=== PATIENT | male | born 1960 | race Hispanic/Latino ===

== ENCOUNTER 2020-01-28 08:14 | Inpatient (IN) | payer BC, OTHER ==
[2020-01-23 09:12] LABS: BASOPHILS % 0.1 % (0.0-1.0); EOSINOPHILS # (AUTO) 0.4 (0.0-0.4); EOSINOPHILS % 2.9 % (0.0-6.0); HEMATOCRIT 42.9 % (38.2-49.6); HEMOGLOBIN 14.3 g/dL (14.0-18.0); LYMPHOCYTES # (AUTO) 1.4 (1.0-3.2); LYMPHOCYTES % 9.8 % (18.0-39.1); MEAN CORPUSCULAR HEMOGLOBIN 29.7 pg (28-32); MEAN CORPUSCULAR HGB CONC 33.3 g/dL (31-35); MEAN CORPUSCULAR VOLUME 89.2 fL (81-99); MONOCYTES # (AUTO) 0.8 (0.2-0.8); MONOCYTES % 5.4 % (4.4-11.3); NEUTROPHILS % 81.1 % (38.7-80.0); PLATELET COUNT 378 x10e3/uL (140-360); RED BLOOD COUNT 4.81 x10e6/uL (4.3-5.7); RED CELL DISTRIBUTION WIDTH 13.4 % (11.7-14.4)
[~2020-01-28] VITALS: Ht 160 cm; Wt 93.0 kg
[~2020-01-28 08:14] MED LIST: ACETYLCYSTEINE 200 MG/ML 4ML VIAL ONE; ADVAIR HFA 115-12 GM INH; ALBUTEROL0.63 MG/3 INH; ALLEGRA ALLERG180 MG PO; ANORO ELLIPTA1 EACH INH; AZELASTINE137 MCG/0. INH; FARXIGA PO; GLIPIZIDE5 MG PO; JANUMET 50-1,01 EACH PO; LIDOCAINE HCL 4% 50 ML BTL ONE; LIDOCAINE HCL-PF 4% 40 MG/1 ML 5ML AMP ONE; LOSARTAN POTAS100 MG PO; MONTELUKAST SOD10 MG PO; NEXIUM40 MG PO; OXYMETAZOLINE HCL 0.05% NAS 1 SPRAY BTL ONE; SIMVASTATIN40 MG PO
--- OUTSIDE RECORDS SUMMARY | 2020-01-28 10:48 | XMS REPORT | Continuity of Care Document ---
Author Author [facility] Organization [facility] Address [address] [place] [address] Phone Unavailable Care Team Providers Care Pool Installer Name Role Phone Unavailable Unavailable Problems This patient has no known problems. Allergies, Adverse Reactions, Alerts This patient has no known allergies or adverse reactions. Medications This patient has no known medications. Procedures This patient has no known procedures. Encounters Start Date/Time End Date/Time Encounter Type Admission Type [facility] Care Department Encounter ID Source 2019-09-30 06:33:00 2019-09-30 06:33:00 Emergency E [id number] Results This patient has no known results.
[2020-01-28] MEDS ORDERED: DEXTROSE 50% SYRINGE 50 ML IV PRN (11:00)
[2020-01-28] MEDS ORDERED: ZOLPIDEM TARTRATE 5 MG TAB PO PRN (11:00)
[2020-01-28] MEDS ORDERED: HYDROCODONE/CHLORPHENIRAMINE 5 ML LIQCR PO PRN (11:00)
[2020-01-28 11:29] VITALS: BP 136/90
[2020-01-28 11:33] VITALS: BP 136/90
[2020-01-28 11:37] VITALS: BP 136/90
[2020-01-28] MEDS: CEFTRIAXONE SOD 1 GM/NS 50 ML 50 ML IV SCH (11:45)
[2020-01-28] MEDS: METHYLPREDNISOLONE SOD SUCC 125 MG/2ML VIAL IV SCH ×2 (11:45→21:10)
[2020-01-28] MEDS: PANTOPRAZOLE 40 MG 10ML VIAL IV SCH (11:45)
[2020-01-28] MEDS: INSULIN REGULAR, HUMAN 100 UNIT/1 ML 3ML VIAL SQ SCH ×3 (11:45→21:20)
--- NOTE | 2020-01-28 11:48 | History and Physical ---
CHIEF COMPLAINT: Persistent cough and dyspnea. HISTORY OF PRESENT ILLNESS: The patient is a 59-year-old man. He has a history of persistent cough and congestion for a month. He notes some improvement with albuterol. He is also noted some acid reflux and postnasal drainage. Despite these treatments as an outpatient, his symptoms have continued to worsen. He had a CT scan of the chest done as an outpatient in August that showed bilateral peripheral infiltrates. He was scheduled for a bronchoscopy today with transbronchial biopsy, but was having wheezing and difficulty breathing. He also reported his breathing being worse over the past week. He had some leukocytosis despite denying any fevers at home. His outpatient bronchoscopy was canceled and he was admitted for intravenous antibiotics and Solu-Medrol. PAST MEDICAL HISTORY: 1. Gastroesophageal reflux. 2. Hypertension. 3. Hyperlipidemia. PAST SURGICAL HISTORY: Status post cataract surgery. FAMILY HISTORY: Noncontributory. SOCIAL HISTORY: The patient quit smoking many years ago. He is not an active drinker. He does have some dogs at home, but no birds. He has not had any recent travel. He has no recent exposure to COVID. His COVID test was negative. REVIEW OF SYSTEMS: The patient is not having fever or headache. He does note some nasal drainage. He is having cough and congestion. He has some wheezing and some improvement with bronchodilators. He does not have any chest pain. He has no nausea or vomiting. He is not having any leg edema. PHYSICAL EXAMINATION: VITAL SIGNS: The patient is afebrile. The vital signs are stable. HEENT: Shows no facial swelling or erythema. LYMPHATIC: Shows no submandibular, cervical, or supraclavicular adenopathy. CARDIAC: Reveals regular rate and rhythm with normal S1 and S2. LUNGS: Auscultation of lungs reveals rhonchi and crackles at the bases. There is no wheezing. ABDOMEN: Soft and nontender. There is no nausea or vomiting. EXTREMITIES: There is no leg edema. NEUROLOGIC: Shows no focal abnormalities. IMPRESSION: 1. Bilateral pulmonary infiltrates and worsening dyspnea, present on admission. 2. Chronic cough with discolored phlegm, present on admission. 3. Rhinosinusitis. 4. Gastroesophageal reflux. 5. Diabetes, requiring oral medications as an outpatient. 6. Hypertension, requiring treatment with oral medications. PLAN: 1. The patient will have a CT scan of the chest to check for any worsening of his infiltrates. 2. Panculture the patient and begin antibiotics. 3. Solu-Medrol 60 mg IV q.12. 4. Bronchodilators. 5. Infectious Disease consultation. 6. Echocardiogram. MD HENRY Reardon/LYUBOV /[id number]
[2020-01-28] MEDS ORDERED: SODIUM CHLORIDE 0.9% 250ML 250 ML ONE (11:51)
[2020-01-28] MEDS: AZITHROMYCIN 500MG/NS 250 ML 250 ML IV SCH (11:53)
[2020-01-28 12:04] VITALS: BP 136/90
[2020-01-28 12:26] LABS: BASOPHILS % 0.2 % (0.0-1.0); EOSINOPHILS # (AUTO) 0.2 (0.0-0.4); EOSINOPHILS % 1.2 % (0.0-6.0); HEMATOCRIT 41.4 % (38.2-49.6); HEMOGLOBIN 13.8 g/dL (14.0-18.0); LYMPHOCYTES # (AUTO) 1.3 (1.0-3.2); MEAN CORPUSCULAR HEMOGLOBIN 29.9 pg (28-32); MEAN CORPUSCULAR HGB CONC 33.3 g/dL (31-35); MEAN CORPUSCULAR VOLUME 89.6 fL (81-99); MONOCYTES # (AUTO) 0.9 (0.2-0.8); MONOCYTES % 4.7 % (4.4-11.3); NEUTROPHILS # (AUTO) 15.5 (2.1-6.9); NEUTROPHILS % 86.4 % (38.7-80.0); PLATELET COUNT 360 x10e3/uL (140-360); RED BLOOD COUNT 4.62 x10e6/uL (4.3-5.7); RED CELL DISTRIBUTION WIDTH 13.2 % (11.7-14.4)
[2020-01-28 12:53] LABS: ALANINE AMINOTRANSFERASE 16 IU/L (0-55); ALBUMIN 3.4 g/dL (3.5-5.0); ALBUMIN/GLOBULIN RATIO 1.1 (0.8-2.0); ALKALINE PHOSPHATASE 85 IU/L (40-150); ANION GAP 14.9 mmol/L (8-16); BLOOD UREA NITROGEN 9 mg/dL (7-26); BUN/CREATININE RATIO 11 (6-25); CALCIUM 8.4 mg/dL (8.4-10.2); CARBON DIOXIDE 24 mmol/L (22-29); CHLORIDE 104 mmol/L (98-107); CREATININE, SERUM 0.79 mg/dL (0.72-1.25); EST GLOMERULAR FILTRATION RATE > 60 ML/MIN (60-); GLUCOSE 139 mg/dL (74-118); POTASSIUM 3.9 mmol/L (3.5-5.1); SODIUM 139 mmol/L (136-145)
[2020-01-28] MEDS: ALBUTEROL SULF 0.083% NEB SOLN 3 ML NEB NEB SCH ×2 (13:05→20:00)
--- NOTE | 2020-01-28 13:14 | Diagnostic Imaging Report ---
EXAM: CT Chest WITHOUT intravenous contrast 01/28/2020 12:15 PM INDICATION: ^pulmonary infiltrates ^[id number] ^1215 COMPARISON: None TECHNIQUE: Chest was scanned utilizing a multidetector helical scanner from the lung apex through the level of the adrenal glands without administration of IV contrast. Coronal and sagittal reformations were obtained. Routine protocol was performed. IV CONTRAST: None RADIATION DOSE: Total DLP: 484 mGy*cm. Dose modulation, iterative reconstruction, and/or weight based adjustment of the mA/kV was utilized to reduce the radiation dose to as low as reasonably achievable. COMPLICATIONS: None FINDINGS: LINES/ TUBES: None. LUNGS AND AIRWAYS: There multifocal peripheral groundglass opacities throughout the dependent portions of the right upper lobe, lingula and left lower lobe. No consolidative opacity is noted. No suspicious pulmonary nodule or mass. PLEURA: The pleural spaces are clear. HEART AND MEDIASTINUM: The thyroid gland is normal. No mediastinal, hilar or axillary lymphadenopathy. The heart is normal in size. There is no pericardial effusion. Coronary artery calcifications are noted. Small hiatal hernia is noted. UPPER ABDOMEN: Unremarkable. BONES: No acute osseous abnormality. No suspicious lytic or blastic lesion. SOFT TISSUES: Unremarkable. IMPRESSION: Bilateral peripheral predominant groundglass opacities are concerning for multifocal infection, likely atypical including possibly viral or fungal. Recommend follow-up after treatment. Signed by: Luc Muñoz MD on 01/28/2020 1:11 PM
--- NOTE | 2020-01-28 15:33 | NUR ---
INFECTIOUS DISEASE CONSULT NOTE DR. MARITZA SEE CC: SOB, fever HPI: 59 year old male with a perisistent cough and congestion for approximately a month that has improved with albuterol. The patient was followed by an MD outpatient who ordered a CT chest. It indicated bilateral infiltrates. He was scheduled for a bronch, but was having wheezing and difficulty breathing. He was also having fevers. He was admitted for IV ABT. Denies travel or contact with animals other than dogs. PMH: GERD, HTN, HLD ROS: + SOB, +weakness ALL 14 POINT ROS NEG UNLESS OTHERWISE NOTED PHYSICAL EXAM: VS: per chart GENERAL: awake, alert, oriented HEENT: normocephalic, atraumatic CV: s1. s2. no s3. s4. CHEST: diminished, wheezing bll ABD: soft, non tender, no distension EXT: moves all, no joint swelling SKIN: intact, no rash LABS: reviewed RADIOLOGY: reviewed IMPRESSION: Bilateral peripheral predominant groundglass opacities are concerning for multifocal infection, likely atypical including possibly viral or fungal. Recommend follow-up after treatment. IMPRESSION: Bilateral infiltrates likely atypical Pneumonia Leukocytosis PLAN: continue on steroids per pulmonary Get COVID IGG Get mycoplasma, legionella, and chlamydia, HIV Recommend Lung biopsy r/o BOOP continue azithromycin and rocephin Thank you for the consult! Angi Ly MSN, CLOTHING MAN, AGACNP-BC discussed with Maritza See M.D.
[2020-01-28 16:00] VITALS: BP 157/92
--- NOTE | 2020-01-28 17:01 | NUR ---
infectious disease consult PI: 59 year old male with a persistent cough and congestion for approximately since june getting slowl worse a ct was done in October was supposed to get bronch ,patient didnot do ,now for a month that has improved with albuterol. The patient was followed by an MD outpatient who ordered a CT chest. It indicated bilateral infiltrates. He was scheduled for a bronch, but was having wheezing and difficulty breathing. He was also having fevers. He was admitted for IV ABT. Denies travel or contact with animals other than dogs. PMH: GERD, HTN, HLD ROS: + SOB, +weakness ALL 14 POINT ROS NEG UNLESS OTHERWISE NOTED PHYSICAL EXAM: VS: per chart GENERAL: awake, alert, oriented HEENT: normocephalic, atraumatic CV: s1. s2. no s3. s4. CHEST: diminished, wheezing bll ABD: soft, non tender, no distension EXT: moves all, no joint swelling SKIN: intact, no rash LABS: reviewed RADIOLOGY: reviewed IMPRESSION: Bilateral peripheral predominant groundglass opacities are concerning for multifocal infection, likely atypical including possibly viral or fungal. Recommend follow-up after treatment. IMPRESSION: Bilateral infiltrates likely atypical Pneumonia Leukocytosis PLAN: continue on steroids per pulmonary Get COVID IGG Get mycoplasma, legionella, and chlamydia, HIV Recommend Lung biopsy r/o BOOP continue azithromycin and rocephin discussed with medical team
[2020-01-28 17:15] LABS: HIV 1&2 AB SCREEN NON-REACTIVE (NONREACTIVE)
[2020-01-28 20:00] VITALS: BP 116/92
[2020-01-29] VITALS (7 sets, daily range): BP systolic 120–148; BP diastolic 81–101
[2020-01-29] MEDS: ALBUTEROL SULF 0.083% NEB SOLN 3 ML NEB NEB SCH ×4 (02:55→20:05)
[2020-01-29] MEDS: INSULIN REGULAR, HUMAN 100 UNIT/1 ML 3ML VIAL SQ SCH ×4 (08:15→22:27)
[2020-01-29] MEDS: PANTOPRAZOLE 40 MG 10ML VIAL IV SCH (08:18)
[2020-01-29] MEDS: LOSARTAN POTASSIUM 100 MG TAB PO SCH (08:19)
[2020-01-29] MEDS: MONTELUKAST SODIUM 10 MG TAB PO SCH (08:19)
[2020-01-29] MEDS: METHYLPREDNISOLONE SOD SUCC 125 MG/2ML VIAL IV SCH ×2 (08:19→22:25)
--- NOTE | 2020-01-29 09:44 | Progress Note ---
DATE: Pulmonary Critical Care Progress Note SUBJECTIVE: The patient is feeling slightly better after receiving steroids and antibiotics. More detailed history reveals that he was a light smoker about 5 to 10 cigarettes a day intermittently in the past. 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 He once again denies any prior history of asthma or bronchitis. His coughing symptoms have been worsening over the past couple of months. He has not lost any weight. In fact, he gained 6 pounds. He denies any fevers. PHYSICAL EXAMINATION: VITAL SIGNS: Blood pressure is 121/99, saturation is 99% on room air. The pulse is 102. HEENT: Shows no facial swelling or erythema. LYMPHATIC: Shows no submandibular, cervical, or supraclavicular adenopathy. CARDIAC: Reveals regular rate and rhythm with normal S1 and S2. LUNGS: Auscultation of lungs reveals crackles at the bases. There is no wheezing. ABDOMEN: Soft and nontender. There is no rebound or guarding. NEUROLOGIC: Shows possibly some weakness in the right hand. LABORATORY DATA: BUN to creatinine ratio is 9 to 0.79. Other electrolytes are within normal limits. White blood cell count is 17.9 with a hemoglobin of 13.8. Platelet count of 360. IMPRESSION: 1. Interstitial pneumonitis of unclear etiology. The differential includes fungal infection, other indolent infections, toxic exposures and cardiovascular disease. 2. Gastroesophageal reflux. 3. Diabetes requiring oral medications as an outpatient. 4. Hypertension. 5. Rhinosinusitis. PLAN: 1. Continue current antibiotics and Solu-Medrol. 2. Case discussed with Thoracic Surgery and Infectious Disease. Case also discussed with the patient and we will proceed with a video-assisted thoracoscopy for definite diagnosis. 3. Continue oxygen. 4. Continue bronchodilators. MD HENRY Reardon/LYUBOV /[id number]
--- NOTE | 2020-01-29 10:00 | Consultation ---
DATE OF CONSULTATION: 01/29/2020 REASON FOR CONSULT: Respiratory insufficiency; requested by Dr. Francia Pino. HISTORY: This is a 59-year-old man with a history of cough and congestion for the last several months. 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 He has also noted some acid reflux and postnasal drip. He has been seen as an outpatient by Dr. Pino. Dyspnea has been progressing as well as wheezing. He was admitted yesterday for possible bronchoscopy. CT scan has shown diffuse infiltrates and minimal effusion. Consideration for biopsy is underway. The patient smoked until last March. He is a whm-zumlcfd-mhgxzaytm diabetic. There is no history of coronary artery disease. A COVID test was reportedly negative. He has had an elevated white blood cell count of approximately at 14,000. He had an echocardiogram showing EF of 65% without any evidence of pericardial effusion. Left ventricular end-diastolic dimension was 5.8 cm. PAST MEDICAL HISTORY: Positive for hyperlipidemia, hypertension, and gastroesophageal reflux. MEDICATIONS: Janumet, simvastatin, losartan, glipizide, and Chaya. PAST SURGICAL HISTORY: Positive for cataract removal. ALLERGIES: NONE KNOWN. FAMILY HISTORY: The patient does not know what his mother and father of. SOCIAL HISTORY: Positive for social alcohol. Quit smoking last March. REVIEW OF SYSTEMS: GENERAL: Positive for fatigue and malaise. NEUROLOGIC: Positive for an episode of weakness in the left hand last week. This is described as paresthesias which resolved after 10 minutes. CARDIAC: Negative for chest pain or palpitation. PULMONARY: Positive for shortness of breath and wheezing as above. GI: No constipation or diarrhea. : Negative hematuria or dysuria. ENDOCRINE: Negative for polyuria or polydipsia. VASCULAR: Negative for claudication. SKIN: Negative for rashes or itching. HEMATOLOGIC: Negative for clotting or bleeding. INFECTIOUS: Positive for white count and malaise. He has not had a fever. PSYCHIATRIC: Negative for depression or anxiety. PHYSICAL EXAMINATION: GENERAL: A stocky man, sitting up in bed, who has some audible wheezing. VITAL SIGNS: Blood pressure 140/70, pulse 80 and regular, respirations 16 and unlabored. NECK: Supple, nontender. No JVD. CARDIAC: Regular rate and rhythm. There is normal S1, S2. There is no S3 or S4. LUNGS: Scattered rhonchi and crackles bilaterally. No areas of dullness. ABDOMEN: Globoid: Benign. Good bowel sounds. No hepatosplenomegaly. BACK: No CVA tenderness. No muscular spasm. EXTREMITIES: No cyanosis, clubbing, or edema. VASCULAR: Carotids 2+/2+ bilaterally. I could not hear any carotid bruits. Radials and femorals are 2+/2+ bilaterally. I could not palpate any pulses distal to either femoral artery in either lower extremities. SKIN: No rashes or nonhealing ulcers. MUSCULOSKELETAL: Full range of motion at all joints. No joint swelling. NEUROLOGIC: Cranial nerves II through XII intact. Sensation intact to light touch and pinprick bilaterally. LABORATORIES AND IMAGING: CT scan is reviewed and is as above. White blood cell count 17.9, hemoglobin 13.8, hematocrit 41.4, and platelet count 360,000. Sodium 139, potassium 3.9, BUN 9, and creatinine 0.79. IMPRESSION: Pulmonary infiltrates of unclear etiology. Thoracoscopic or open lung biopsy might be a beneficial procedure if other physicians agree. I described thoracoscopic and open surgery to the patient. I told him that the risks of either surgery would include , bleeding, infection, heart attack, stroke, pneumonia, prolonged ICU stay, mechanical ventilation, tracheostomy, etc. The patient stated they understood, no further questions and wanted to proceed if the procedure was recommended. Thank you very much for asking me to see this nice man. MD DEEPA Rice/LYUBOV /[id number]
[2020-01-29 11:07] LABS: BASOPHILS % 0.2 % (0.0-1.0); HEMATOCRIT 41.7 % (38.2-49.6); HEMOGLOBIN 14.5 g/dL (14.0-18.0); LYMPHOCYTES # (AUTO) 0.8 (1.0-3.2); LYMPHOCYTES % 3.3 % (18.0-39.1); MEAN CORPUSCULAR HEMOGLOBIN 30.9 pg (28-32); MEAN CORPUSCULAR HGB CONC 34.8 g/dL (31-35); MEAN CORPUSCULAR VOLUME 88.9 fL (81-99); MONOCYTES # (AUTO) 0.7 (0.2-0.8); MONOCYTES % 2.7 % (4.4-11.3); NEUTROPHILS # (AUTO) 22.7 (2.1-6.9); NEUTROPHILS % 92.9 % (38.7-80.0); PLATELET COUNT 375 x10e3/uL (140-360); RED BLOOD COUNT 4.69 x10e6/uL (4.3-5.7); RED CELL DISTRIBUTION WIDTH 13.2 % (11.7-14.4)
[2020-01-29] MEDS: CEFTRIAXONE SOD 1 GM/NS 50 ML 50 ML IV SCH ×2 (11:15→15:18)
[2020-01-29 11:29] LABS: ANION GAP 14.9 mmol/L (8-16); BLOOD UREA NITROGEN 16 mg/dL (7-26); BUN/CREATININE RATIO 18 (6-25); CALCIUM 8.7 mg/dL (8.4-10.2); CARBON DIOXIDE 23 mmol/L (22-29); CHLORIDE 104 mmol/L (98-107); CREATININE, SERUM 0.89 mg/dL (0.72-1.25); EST GLOMERULAR FILTRATION RATE > 60 ML/MIN (60-); GLUCOSE 255 mg/dL (74-118); POTASSIUM 3.9 mmol/L (3.5-5.1); SODIUM 138 mmol/L (136-145)
[2020-01-29] MEDS: AZITHROMYCIN 500MG/NS 250 ML 250 ML IV SCH ×2 (12:00→15:18)
--- NOTE | 2020-01-29 14:00 | NUR ---
PRE/POST BS PFT DONE. RESULTS PLACED IN DR. SCHAEFER'S BOX TO BE READ . Addendum: 01/29/20 at 1435 by Nancy Nieves RT Amended: Links added.
[2020-01-29 15:37] LABS: ABG HCO3 24 mmol/L (22-26); ABG PCO2 36 mmHg (35-45); ABG PH 7.42 (7.35-7.45); ABG PO2 62 mmHg (80-105); ABG TCO2 25
[2020-01-29] MEDS: AZELASTINE HCL 137 MCG NASAL SPRAY NS SCH (16:53)
--- NOTE | 2020-01-29 18:03 | Diagnostic Imaging Report ---
History: Weakness Comparison studies: None Technique: Axial images were obtained from the skull base to the vertex. Coronal and sagittal reconstructions obtained from the axial data. Dose modulation, iterative reconstruction, and/or weight based adjustment of the mA/kV was utilized to reduce the radiation dose to as low as reasonably achievable. Intravenous contrast: None Findings: Scalp/skull: No abnormalities. No fractures, blastic or lytic lesions. Extra-axial spaces: No masses. No fluid collections. Brain sulci: Appropriate for age. Ventricles: Normal in size and configuration. No hydrocephalus. Parenchyma: Focal chronic encephalomalacic changes in the left superomedial and left posterolateral cerebellum are the result of old peripheral vascular insults. No masses, hemorrhage, acute or additional chronic cortical vascular insults. Sellar/suprasellar region: No abnormalities Craniocervical junction: Patent foramen magnum. No Chiari one malformation. Incidental findings: None. IMPRESSION: 1. No acute intracranial abnormalities. 2. Old focal cortical vascular insults in the left superomedial and left posterolateral cerebellum Signed by: Dr. Gabino Archer M.D. on 01/29/2020 5:59 PM
--- NOTE | 2020-01-29 19:18 | Progress Note ---
DATE: SUBJECTIVE: Mr. Doyle is feeling better. He is still having some cough and congestion. He was seen by Dr. Yan, Cardiovascular Surgery. LABORATORY DATA: His blood cultures were negative. His white count today is 24, hemoglobin 14, hematocrit 41. Sodium 138, potassium 3.9, his creatinine is 0.89. His COVID-19 was negative. HIV was negative. The patient was currently on Rocephin, azithromycin, and methylprednisolone 60 q.12. PHYSICAL EXAMINATION: GENERAL: He is currently alert and oriented. VITAL SIGNS: Stable, currently afebrile. HEENT: He is not icteric. NECK: Supple. CHEST: Crackles bilateral. HEART: S1, S2. ABDOMEN: Soft. Bowel sounds present. EXTREMITIES: No edema. SKIN: No rash. IMPRESSION: 1. Interstitial infiltrate, etiology unclear. Agree with open lung biopsy. 2. Possibly community-acquired pneumonia to finish course of antibiotic as ordered. Obesity. Hypertension. 3. Leukocytosis secondary to steroid. There is possibility of early bronchiolitis obliterans organizing pneumonia. Agree with video-assisted thoracoscopy procedure for definitive diagnosis. Oxygen as needed and Lovenox as needed. MD CARLOS Govea/LYUBOV /[id number]
[2020-01-29] MEDS: FLUTICASONE/SALMETEROL 115/21 12 GM AERO IH SCH (20:20)
[2020-01-29] MEDS: SIMVASTATIN 40 MG TAB PO SCH (22:25)
[2020-01-30] VITALS (13 sets, daily range): BP systolic 119–155; BP diastolic 81–98
[2020-01-30] MEDS: ALBUTEROL SULF 0.083% NEB SOLN 3 ML NEB NEB SCH ×4 (02:00→13:00)
[2020-01-30 04:49] LABS: BASOPHILS % 0.2 % (0.0-1.0); HEMATOCRIT 41.6 % (38.2-49.6); HEMOGLOBIN 13.9 g/dL (14.0-18.0); LYMPHOCYTES # (AUTO) 0.8 (1.0-3.2); LYMPHOCYTES % 3.7 % (18.0-39.1); MEAN CORPUSCULAR HEMOGLOBIN 29.6 pg (28-32); MEAN CORPUSCULAR HGB CONC 33.4 g/dL (31-35); MEAN CORPUSCULAR VOLUME 88.7 fL (81-99); MONOCYTES # (AUTO) 0.5 (0.2-0.8); NEUTROPHILS % 92.6 % (38.7-80.0); PLATELET COUNT 389 x10e3/uL (140-360); RED BLOOD COUNT 4.69 x10e6/uL (4.3-5.7); RED CELL DISTRIBUTION WIDTH 13.2 % (11.7-14.4)
[2020-01-30 05:14] LABS: ALANINE AMINOTRANSFERASE 15 IU/L (0-55); ALBUMIN 3.4 g/dL (3.5-5.0); ALKALINE PHOSPHATASE 80 IU/L (40-150); BLOOD UREA NITROGEN 18 mg/dL (7-26); BUN/CREATININE RATIO 21 (6-25); CALCIUM 8.6 mg/dL (8.4-10.2); CARBON DIOXIDE 23 mmol/L (22-29); CHLORIDE 104 mmol/L (98-107); CREATININE, SERUM 0.86 mg/dL (0.72-1.25); EST GLOMERULAR FILTRATION RATE > 60 ML/MIN (60-); GLUCOSE 224 mg/dL (74-118); SODIUM 137 mmol/L (136-145)
[2020-01-30] MEDS ORDERED: HEPARIN SOD/SOD CHLORIDE 1,000 ML ONE (06:50)
[2020-01-30] MEDS: FLUTICASONE/SALMETEROL 115/21 12 GM AERO IH SCH ×3 (07:00→19:25)
[2020-01-30] MEDS ORDERED: LIDOCAINE 1% W/EPINEPHRINE 20 ML VIAL ONE (07:07)
[2020-01-30] MEDS ORDERED: LIDOCAINE HCL (LTA) 4 ML SOLN ONE (07:16)
[2020-01-30] MEDS ORDERED: SUGAMMADEX SODIUM 200 MG/2 ML VIAL IV ONE (07:17)
[2020-01-30] MEDS: INSULIN REGULAR, HUMAN 100 UNIT/1 ML 3ML VIAL SQ SCH ×4 (07:30→20:09)
[2020-01-30] MEDS: PANTOPRAZOLE 40 MG 10ML VIAL IV SCH (08:52)
[2020-01-30] MEDS: MONTELUKAST SODIUM 10 MG TAB PO SCH (08:52)
[2020-01-30] MEDS: LOSARTAN POTASSIUM 100 MG TAB PO SCH (08:52)
[2020-01-30] MEDS: METHYLPREDNISOLONE SOD SUCC 125 MG/2ML VIAL IV SCH (08:52)
[2020-01-30] MEDS: AZELASTINE HCL 137 MCG NASAL SPRAY NS SCH ×2 (08:52→17:21)
--- NOTE | 2020-01-30 09:00 | NUR ---
Patient off of unit for procedure at this time.
[2020-01-30] MEDS ORDERED: BUPIVACAINE HCL 0.5% INJ 30 ML VIAL INJ ONE (10:37)
[2020-01-30] MEDS ORDERED: MORPHINE SULFATE INJ 4 MG/ML INJ 1ML ONE (11:55)
[2020-01-30] MEDS ORDERED: MORPHINE SULFATE INJ 10 MG/ML ONE (11:59)
[2020-01-30] MEDS ORDERED: FENTANYL CITRATE/PF 100MCG/2 ML INJ ONE ×2 (12:00→12:26)
--- NOTE | 2020-01-30 12:20 | Diagnostic Imaging Report ---
EXAMINATION: CHEST XRAY POST PROCEDURE INDICATION: Chest tube placement COMPARISON: Chest CT of 01/28/2020 FINDINGS: LINES/TUBES:Interval placement of right chest tube. EKG leads overlie the chest. LUNGS:The lung volumes are low. Mild hazy bilateral opacities. PLEURA:No pleural effusion or pneumothorax. MEDIASTINUM:The cardiomediastinal silhouette appears normal in size and shape. BONES/SOFT TISSUES:No acute osseous injury. Right lateral chest wall and right neck subcutaneous emphysema. ABDOMEN:No free air under the diaphragm. IMPRESSION: No pneumothorax status post right chest tube placement. Right lateral chest wall and right neck subcutaneous emphysema. Mild hazy bilateral opacities correspond with groundglass opacities seen on CT, concerning for multifocal infection. Signed by: Tracie Mota MD on 01/30/2020 12:17 PM
[2020-01-30] MEDS ORDERED: MIDAZOLAM HCL 2 MG/2 ML VIAL ONE (12:26)
--- NOTE | 2020-01-30 12:51 | Operative Report ---
DATE OF PROCEDURE: 01/30/2020 SURGEON: Андрей Yan MD PREOPERATIVE DIAGNOSES: Respiratory insufficiency, pulmonary infiltrates. POSTOPERATIVE DIAGNOSES: Respiratory insufficiency, pulmonary infiltrates. OPERATIVE PROCEDURES: 1. Flexible bronchoscopy washings, cultures, and cytology. 2. Arthroscopic right lung biopsy x2 (upper and lower lobe). COMMERCIAL CARPENTER: Nursing staff. ANESTHESIA: General endotracheal with a double-lumen endotracheal tube. INDICATIONS: This is a 59-year-old man with respiratory insufficiency and pulmonary infiltrates. Lung biopsy and bronchoscopic examination have been recommended. Prior to surgery, I described the operation to the patient. I told him that the risks of surgery would include , bleeding, infection, heart attack, stroke, pneumonia, prolonged ICU stay, mechanical ventilation, tracheostomy, etc. I told him that a 30% of cases, the procedure was not resulted in any definitive diagnosis. The patient stated he understood, no further questions, and wanted to proceed. He gave me the phone number of his , I did not get any answer. FINDINGS: Bronchoscopy did not show any endobronchial lesions. Sputum for cytology and culture obtained. Anaerobic, aerobic, fungal, and AFB cultures sent. Examination of the lung thoracoscopically did not reveal any abnormalities. Enrichment Teacher sections of the upper lobe were taken. These were sent for permanent pathologic analysis, frozen section, and anaerobic, aerobic, fungal, and AFB cultures. DESCRIPTION OF PROCEDURE: The patient was taken to the operating room on January 30, 2020. Placed supine upon the operating room table. General endotracheal anesthesia with a single-lumen endotracheal tube was performed. Flexible bronchoscopic examination was performed at this point. The trachea, right and mainstem bronchus, left upper lobe, left lower lobe, right lower lobe, right middle lobe, and right upper lobe did not have any endobronchial lesions. Washings were taken from right and left side for both cultures and cytology. The bronchoscope was withdrawn. Double-lumen endotracheal tube was smoothly and appropriately positioned, and the patient was turned with his right side up. Three port incisions were made, two were 5 mm ports and a 12 mm port incision. The 2 small incisions were made along the line of a posterolateral thoracotomy, and a 3rd was placed low on the chest wall. Inspection of the lung thoracoscopically did not reveal any abnormalities or irregularities. Enrichment Teacher . Specimens were sent for analysis as above. A 32 Temple[place] tube was inserted uneventfully. The lung was reinflated uneventfully. The wounds were closed in layers using absorbable suture. Local anesthesia was administered. Sterile dressings were applied. Sponge, instrument, and needle counts were correct both prior to and after wound closure. Independent search of the operative field by both operating surgeons and nurse revealed no retained instruments or sponges. The patient tolerated the procedure well, was extubated in the operating room and taken to the recovery area in stable condition. MD DEEPA Rice/MODL /[id number]
[2020-01-30] MEDS ORDERED: LABETALOL HCL 20 ML ONE (12:59)
[2020-01-30] MEDS ORDERED: ALBUTEROL SULF 0.083% NEB SOLN 3 ML NEB NEB PRN (14:45)
--- NOTE | 2020-01-30 15:17 | Progress Note ---
DATE: SUBJECTIVE: The patient went for a video-assisted thoracoscopy with lung biopsy today. He is now in the ICU and extubated. He has a single chest tube. He also has an A-line. PHYSICAL EXAMINATION: VITAL SIGNS: Blood pressure is 125/94 and saturation is 94%. HEENT: Shows no facial swelling or erythema. LYMPHATIC: Shows no submandibular, cervical, or supraclavicular adenopathy. CARDIAC: Reveals regular rate and rhythm with normal S1 and S2. ABDOMEN: Soft and nontender. There is no rebound or guarding. EXTREMITIES: Show no leg edema or calf tenderness. There is no cyanosis or clubbing. SKIN: Shows no rashes. NEUROLOGICAL: Shows no focal abnormalities. LABORATORY DATA: BUN to creatinine ratio is normal. Glucose is 193 to 255. White blood cell count is 22.67, hemoglobin is 13.9, and platelet count is 389. IMPRESSION: 1. Interstitial pneumonitis of unclear etiology. 2. Gastroesophageal reflux. 3. Diabetes. 4. Hypertension. PLAN: 1. Await results of lung biopsy. 2. Continue current antibiotics. 3. Wean oxygen as tolerated. 4. Monitor output from chest tube. MD HENRY Reardon/LYUBOV /[id number]
[2020-01-30] MEDS ORDERED: ACETAMINOPHEN/CODEINE 300MG - 30MG TAB PO PRN (16:00)
[2020-01-30] MEDS ORDERED: MORPHINE SULFATE 2 MG/ML SYR 1ML IV PRN (16:00)
[2020-01-30 16:28] LABS: BASOPHILS % 0.1 % (0.0-1.0); LYMPHOCYTES # (AUTO) 0.6 (1.0-3.2); LYMPHOCYTES % 2.2 % (18.0-39.1); MEAN CORPUSCULAR HEMOGLOBIN 29.2 pg (28-32); MEAN CORPUSCULAR HGB CONC 32.6 g/dL (31-35); MEAN CORPUSCULAR VOLUME 89.8 fL (81-99); MONOCYTES # (AUTO) 1.6 (0.2-0.8); MONOCYTES % 5.7 % (4.4-11.3); NEUTROPHILS # (AUTO) 25.5 (2.1-6.9); NEUTROPHILS % 89.9 % (38.7-80.0); PLATELET COUNT 386 x10e3/uL (140-360); RED BLOOD COUNT 4.79 x10e6/uL (4.3-5.7); RED CELL DISTRIBUTION WIDTH 13.4 % (11.7-14.4)
[2020-01-30] MEDS: ACETAMINOPHEN/CODEINE 300MG - 30MG TAB PO PRN (16:47)
[2020-01-30 16:48] LABS: ANION GAP 15.1 mmol/L (8-16); BLOOD UREA NITROGEN 20 mg/dL (7-26); BUN/CREATININE RATIO 24 (6-25); CALCIUM 8.2 mg/dL (8.4-10.2); CARBON DIOXIDE 23 mmol/L (22-29); CHLORIDE 103 mmol/L (98-107); CREATININE, SERUM 0.83 mg/dL (0.72-1.25); EST GLOMERULAR FILTRATION RATE > 60 ML/MIN (60-); GLUCOSE 238 mg/dL (74-118); POTASSIUM 4.1 mmol/L (3.5-5.1); SODIUM 137 mmol/L (136-145)
[2020-01-30] MEDS: CEFTRIAXONE SOD 1 GM/NS 50 ML 50 ML IV SCH (16:51)
[2020-01-30] MEDS: AZITHROMYCIN 500MG/NS 250 ML 250 ML IV SCH (16:52)
[2020-01-30] MEDS: DOCUSATE SODIUM 100 MG CAP PO SCH (17:21)
[2020-01-30] MEDS ORDERED: LIDOCAINE HCL 2% LOCAL INJ 5 ML SDV VIAL INJ ONE (17:33)
[2020-01-30] MEDS ORDERED: ROCURONIUM BROMIDE 10 MG/ML 5ML VIAL IV ONE (17:33)
[2020-01-30] MEDS ORDERED: ONDANSETRON HCL INJ 2MG/ML 2ML 2 MG/ML VIAL ONE (17:33)
[2020-01-30] MEDS ORDERED: EPHEDRINE SULFATE INJ 50 MG/ML VIAL ONE (17:33)
[2020-01-30] MEDS ORDERED: SEVOFLURANE INHAL SOLN 250 ML PEN BTL ONE (17:33)
[2020-01-30] MEDS ORDERED: DEXAMETHASONE SOD PHOS INJ 4 MG/ML VIAL ONE (17:33)
[2020-01-30] MEDS ORDERED: PROPOFOL IV EMULSION 10 MG/ML 20 ML VIAL ONE (17:33)
[2020-01-30] MEDS ORDERED: LIDOCAINE HCL 2% JELLY 5 ML TUBE ONE (17:33)
[2020-01-30] MEDS ORDERED: FUROSEMIDE INJ 10 MG/ML 2 ML VIAL ONE (18:46)
--- NOTE | 2020-01-30 19:08 | Progress Note ---
DATE: SUBJECTIVE: Mr. Doyle underwent video-assisted thoracoscopic procedure. He is currently in the intensive care unit, chest tube, but he is doing really good. He is off the vent. No complaints. REVIEW OF SYSTEMS: Otherwise just chest pain. PHYSICAL EXAMINATION: GENERAL: He is currently alert and oriented. VITAL SIGNS: Stable, currently afebrile. HEENT: Normocephalic. NECK: Supple. CHEST: Crackles bilateral. HEART: S1 and S2. ABDOMEN: Soft. Bowel sounds present. EXTREMITIES: No edema. LABORATORY DATA: Pathology was sent. Culture was sent. His white count is 28, hemoglobin 14, and hematocrit 43. IMPRESSION: 1. Pulmonary process, underwent biopsy today. Await the pathology. Await the cultures. We will treat him for community-acquired pneumonia until we get the final culture result. Leukocytosis due to steroid. 2. Obesity. 3. Diabetes mellitus. 4. Hypercholesterolemia. 5. Stable from Infectious Disease point of view. Workup is in progress. MD CARLOS Govea/MODL /[id number]
[2020-01-30] MEDS: SIMVASTATIN 40 MG TAB PO SCH (20:06)
[2020-01-30] MEDS: MORPHINE SULFATE INJ 4 MG/ML INJ 1ML IV PRN (20:07)
[2020-01-31] VITALS (25 sets, daily range): BP systolic 123–170; BP diastolic 61–109
[2020-01-31 04:56] LABS: BASOPHILS % 0.1 % (0.0-1.0); HEMATOCRIT 41.3 % (38.2-49.6); HEMOGLOBIN 13.5 g/dL (14.0-18.0); LYMPHOCYTES # (AUTO) 1.3 (1.0-3.2); LYMPHOCYTES % 6.2 % (18.0-39.1); MEAN CORPUSCULAR HEMOGLOBIN 29.4 pg (28-32); MEAN CORPUSCULAR HGB CONC 32.7 g/dL (31-35); MONOCYTES # (AUTO) 1.5 (0.2-0.8); NEUTROPHILS # (AUTO) 18.1 (2.1-6.9); NEUTROPHILS % 85.7 % (38.7-80.0); PLATELET COUNT 379 x10e3/uL (140-360); RED BLOOD COUNT 4.59 x10e6/uL (4.3-5.7); RED CELL DISTRIBUTION WIDTH 13.8 % (11.7-14.4)
[2020-01-31 05:18] LABS: ALANINE AMINOTRANSFERASE 15 IU/L (0-55); ALBUMIN 3.2 g/dL (3.5-5.0); ALBUMIN/GLOBULIN RATIO 0.9 (0.8-2.0); ALKALINE PHOSPHATASE 67 IU/L (40-150); ANION GAP 16.4 mmol/L (8-16); BLOOD UREA NITROGEN 18 mg/dL (7-26); BUN/CREATININE RATIO 22 (6-25); CALCIUM 8.2 mg/dL (8.4-10.2); CARBON DIOXIDE 25 mmol/L (22-29); CHLORIDE 102 mmol/L (98-107); CREATININE, SERUM 0.82 mg/dL (0.72-1.25); EST GLOMERULAR FILTRATION RATE > 60 ML/MIN (60-); GLUCOSE 152 mg/dL (74-118); POTASSIUM 4.4 mmol/L (3.5-5.1); SODIUM 139 mmol/L (136-145)
[2020-01-31] MEDS: FLUTICASONE/SALMETEROL 115/21 12 GM AERO IH SCH ×2 (06:58→18:56)
[2020-01-31] MEDS: INSULIN REGULAR, HUMAN 100 UNIT/1 ML 3ML VIAL SQ SCH ×4 (08:33→21:24)
[2020-01-31] MEDS: PANTOPRAZOLE 40 MG 10ML VIAL IV SCH (08:36)
[2020-01-31] MEDS: MONTELUKAST SODIUM 10 MG TAB PO SCH (08:37)
[2020-01-31] MEDS: AZELASTINE HCL 137 MCG NASAL SPRAY NS SCH ×2 (08:37→16:54)
[2020-01-31] MEDS: DOCUSATE SODIUM 100 MG CAP PO SCH ×2 (08:37→16:54)
[2020-01-31] MEDS: LOSARTAN POTASSIUM 100 MG TAB PO SCH (08:38)
--- NOTE | 2020-01-31 11:58 | NUR ---
INFECTIOUS DISEASE PROGRESS NOTE DR. MARITZA SEE CC: SOB, fever HPI: 59 year old male with a persistent cough and congestion for approximately a month that has improved with albuterol. The patient was followed by an MD outpatient who ordered a CT chest. It indicated bilateral infiltrates. He was scheduled for a bronch, but was having wheezing and difficulty breathing. He was also having fevers. He was admitted for IV ABT. Denies travel or contact with animals other than dogs. PMH: GERD, HTN, HLD ROS: + SOB, +weakness ALL 14 POINT ROS NEG UNLESS OTHERWISE NOTED PHYSICAL EXAM: VS: per chart GENERAL: awake, alert, oriented HEENT: normocephalic, atraumatic CV: s1. s2. no s3. s4. CHEST: diminished, on high flow n/c ABD: soft, non tender, no distension EXT: moves all, no joint swelling SKIN: intact, no rash LABS: reviewed RADIOLOGY: reviewed IMPRESSION: Bilateral peripheral predominant groundglass opacities are concerning for multifocal infection, likely atypical including possibly viral or fungal. Recommend follow-up after treatment. IMPRESSION: Bilateral infiltrates concern for atypical Pneumonia Leukocytosis Obesity T2DM PLAN: s/p biopsy, await results continue coverage for PNA including atypical Leukocytosis likey secondary to steroid use Pt clinically stable at this time Work-up in progress Thank you for the consult! Angi Ly MSN, CILNICAL SCIENTIST, AGACNP-BC discussed with Maritza See M.D.
--- NOTE | 2020-01-31 13:06 | Progress Note ---
DATE: SUBJECTIVE: The patient still has some pain from the chest tube site. He still has some coughing, but notes less dyspnea. He is eating clear liquid diet. PHYSICAL EXAMINATION: VITAL SIGNS: Blood pressure is 154/83 and saturation is 95% on 3 L. HEENT: Shows no facial swelling or erythema. LYMPHATIC: Shows no submandibular, cervical, or supraclavicular adenopathy. CARDIAC: Reveals a regular rate and rhythm with normal S1 and S2. LUNGS: Auscultation of lungs reveals rhonchorous breath sounds bilaterally. There is no wheezing. ABDOMEN: Soft and nontender. There is no rebound or guarding. EXTREMITIES: Show no leg edema or calf tenderness. There is no cyanosis or clubbing. SKIN: Shows no rashes. LABORATORY DATA: 21.1 and hemoglobin is 13.5. Platelet count is 379. BUN to creatinine ratio is normal. The other electrolytes are within normal limits. RADIOGRAPHIC DATA: Chest x-ray shows no pneumothorax. There is some subcutaneous emphysema. There are some infiltrates. IMPRESSION: 1. Interstitial pneumonitis of unclear etiology and has been worsening over several months. 2. Gastroesophageal reflux. 3. Diabetes. 4. Hypertension. PLAN: 1. Continue to monitor chest tube drainage. We will remove when okay with Thoracic Surgery. 2. Discontinue A-line. 3. Wean oxygen as tolerated. 4. Physical therapy. 5. Await pathology results. Sinan Pino MD [facility] /[id number]
[2020-01-31] MEDS: ACETAMINOPHEN/CODEINE 300MG - 30MG TAB PO PRN (13:35)
[2020-01-31] MEDS: AZITHROMYCIN 500MG/NS 250 ML 250 ML IV SCH (15:52)
[2020-01-31] MEDS: CEFTRIAXONE SOD 1 GM/NS 50 ML 50 ML IV SCH (16:54)
[2020-01-31] MEDS: SIMVASTATIN 40 MG TAB PO SCH (21:18)
[2020-02-01] VITALS (24 sets, daily range): BP systolic 121–177; BP diastolic 69–119
--- NOTE | 2020-02-01 00:42 | NUR ---
Medicated for c/o pain.
[2020-02-01] MEDS: MORPHINE SULFATE INJ 4 MG/ML INJ 1ML IV PRN ×2 (05:11→23:17)
--- NOTE | 2020-02-01 05:13 | NUR ---
Medicated for c/o pain.
[2020-02-01] MEDS: FLUTICASONE/SALMETEROL 115/21 12 GM AERO IH SCH ×2 (07:50→18:59)
[2020-02-01] MEDS: INSULIN REGULAR, HUMAN 100 UNIT/1 ML 3ML VIAL SQ SCH ×4 (07:52→20:52)
[2020-02-01] MEDS: DOCUSATE SODIUM 100 MG CAP PO SCH ×2 (08:13→17:12)
[2020-02-01] MEDS: LOSARTAN POTASSIUM 100 MG TAB PO SCH (08:13)
[2020-02-01] MEDS: AZELASTINE HCL 137 MCG NASAL SPRAY NS SCH ×2 (08:13→17:12)
[2020-02-01] MEDS: MONTELUKAST SODIUM 10 MG TAB PO SCH (08:13)
[2020-02-01] MEDS: PANTOPRAZOLE 40 MG 10ML VIAL IV SCH (08:13)
[2020-02-01 10:01] LABS: BASOPHILS % 0.1 % (0.0-1.0); EOSINOPHILS # (AUTO) 0.2 (0.0-0.4); EOSINOPHILS % 1.3 % (0.0-6.0); HEMATOCRIT 42.6 % (38.2-49.6); HEMOGLOBIN 13.8 g/dL (14.0-18.0); LYMPHOCYTES # (AUTO) 1.8 (1.0-3.2); LYMPHOCYTES % 14.4 % (18.0-39.1); MEAN CORPUSCULAR HEMOGLOBIN 29.1 pg (28-32); MEAN CORPUSCULAR HGB CONC 32.4 g/dL (31-35); MEAN CORPUSCULAR VOLUME 89.9 fL (81-99); MONOCYTES # (AUTO) 0.9 (0.2-0.8); MONOCYTES % 6.9 % (4.4-11.3); NEUTROPHILS # (AUTO) 9.6 (2.1-6.9); PLATELET COUNT 347 x10e3/uL (140-360); RED BLOOD COUNT 4.74 x10e6/uL (4.3-5.7); RED CELL DISTRIBUTION WIDTH 13.4 % (11.7-14.4)
[2020-02-01] MEDS: ACETAMINOPHEN/CODEINE 300MG - 30MG TAB PO PRN (10:09)
[2020-02-01 10:17] LABS: ALANINE AMINOTRANSFERASE 15 IU/L (0-55); ALKALINE PHOSPHATASE 65 IU/L (40-150); ANION GAP 11.7 mmol/L (8-16); BLOOD UREA NITROGEN 13 mg/dL (7-26); BUN/CREATININE RATIO 16 (6-25); CARBON DIOXIDE 27 mmol/L (22-29); CHLORIDE 101 mmol/L (98-107); CREATININE, SERUM 0.83 mg/dL (0.72-1.25); EST GLOMERULAR FILTRATION RATE > 60 ML/MIN (60-); GLUCOSE 200 mg/dL (74-118); POTASSIUM 3.7 mmol/L (3.5-5.1); SODIUM 136 mmol/L (136-145)
--- NOTE | 2020-02-01 10:29 | Progress Note ---
DATE: SUBJECTIVE: The patient is still having some pain related to his chest tube. His chest tube drained about 50 mL last night. He is not having fever. He has no cough. PHYSICAL EXAMINATION: VITAL SIGNS: The patient is afebrile. The blood pressure is 143/88, saturation is 96% on 3 L and the pulse is 87. HEENT: No facial swelling or erythema. LYMPHATIC: No submandibular, cervical, or supraclavicular adenopathy. CARDIAC: Regular rate and rhythm with normal S1, S2. LUNGS: Auscultation of lungs shows decreased breath sounds at the bases. There is no wheezing. There is a right-sided chest tube in place. There is some mild drainage, about 50 mL overnight. EXTREMITIES: There is no leg edema. There are no neurological abnormalities. IMPRESSION: 1. Interstitial pneumonitis of unclear etiology. 2. Gastroesophageal reflux. 3. Diabetes. 4. Hypertension. PLAN: 1. Chest tube to water seal today. Thoracic surgery will see the patient later today and possibly remove the chest tube. 2. Continue current antibiotics. 3. Wean oxygen. 4. Physical therapy. 5. Await pathology results. MD HENRY Reardon/LYUBOV /[id number]
--- NOTE | 2020-02-01 10:39 | Diagnostic Imaging Report ---
EXAMINATION: CHEST SINGLE (PORTABLE) INDICATION: Shortness of breath. COMPARISON: Chest x-ray on 01/30/2020. FINDINGS: TUBES and LINES: Right chest tube. LUNGS: The lungs are hypoinflated with bronchovascular crowding. There is chronic elevation of the right hemidiaphragm. There are prominent interstitial lung markings and hazy opacification the bilateral lung bases. PLEURA: There is probable trace bilateral pleural effusion. HEART AND MEDIASTINUM: The cardiomediastinal silhouette is enlarged. BONES AND SOFT TISSUES: No acute osseous lesion. Right lateral chest wall and neck subcutaneous emphysema. UPPER ABDOMEN: No free air under the diaphragm. IMPRESSION: 1. Cardiomegaly with interstitial pulmonary edema. 2. Hazy opacification of bilateral lung bases may represent atelectasis and/or developing multifocal pneumonia. 3. No interval changes in right lateral chest wall and neck subcutaneous emphysema. Signed by: Sang Beckman MD on 02/01/2020 10:36 AM
[2020-02-01] MEDS: AZITHROMYCIN 500MG/NS 250 ML 250 ML IV SCH (15:31)
[2020-02-01] MEDS: CEFTRIAXONE SOD 1 GM/NS 50 ML 50 ML IV SCH (17:11)
--- NOTE | 2020-02-01 19:00 | NUR ---
Report received. Assumed care. Assessment done. See interventions. IV saline locked. O2 per NC @ 3L. Coughing up blood tinged secretions.
[2020-02-01] MEDS: SIMVASTATIN 40 MG TAB PO SCH (20:52)
--- NOTE | 2020-02-01 21:55 | NUR ---
Placed on Bipap for the night per request.
--- NOTE | 2020-02-01 23:15 | NUR ---
Medicated for c/o pain.
[2020-02-02] VITALS (13 sets, daily range): BP systolic 125–160; BP diastolic 68–110
[2020-02-02] MEDS: MORPHINE SULFATE INJ 4 MG/ML INJ 1ML IV PRN (03:01)
[2020-02-02] MEDS: FLUTICASONE/SALMETEROL 115/21 12 GM AERO IH SCH (06:50)
[2020-02-02] MEDS: INSULIN REGULAR, HUMAN 100 UNIT/1 ML 3ML VIAL SQ SCH ×2 (07:35→11:22)
[2020-02-02] MEDS: DOCUSATE SODIUM 100 MG CAP PO SCH (09:08)
[2020-02-02] MEDS: MONTELUKAST SODIUM 10 MG TAB PO SCH (09:08)
[2020-02-02] MEDS: LOSARTAN POTASSIUM 100 MG TAB PO SCH (09:08)
[2020-02-02] MEDS: PANTOPRAZOLE 40 MG 10ML VIAL IV SCH (09:08)
[2020-02-02] MEDS ORDERED: MORPHINE SULFATE 2 MG/ML SYR 1ML ONE (09:39)
--- NOTE | 2020-02-02 09:41 | NUR ---
CT Surgery progress note Wounds clean Breathing comfortably CXR OK Lungs fully expanded No air leak in Pleurevac Path pending Chest tube removed CXR after removal pending Good progress Home soon -Delfina Yan MD
[2020-02-02] MEDS ORDERED: MORPHINE SULFATE 2 MG/ML SYR 1ML IV ONE (10:15)
--- NOTE | 2020-02-02 10:30 | NUR ---
right chest tube was taken out by Dr Yan, 2mg of morphine ordered and given before chest tube was taken out. no s/s of bleeding noted at the site. site was covered with guaze and foam tape by Dr Yan.
--- NOTE | 2020-02-02 10:40 | Diagnostic Imaging Report ---
Chest, 1 view, 02/02/2020. History: Chest tube removal, shortness of breath. Comparison: 02/01/2020. Findings: There is poor inspiration. The cardiomediastinal silhouette and pulmonary vasculature are unchanged. There is no focal consolidation or pleural effusion. Linear opacities are present at the lung bases. There is no visible pneumothorax. Right hemidiaphragmatic elevation is again noted. A small amount of subcutaneous emphysema is again seen in the right supraclavicular region. Impression: Bibasilar atelectasis. No visible pneumothorax. Signed by: Pedro Valdes on 02/02/2020 10:36 AM
[2020-02-02] MEDS: AZELASTINE HCL 137 MCG NASAL SPRAY NS SCH (10:44)
--- NOTE | 2020-02-02 11:44 | Discharge Summary ---
DISCHARGE DIAGNOSES: 1. Diffuse interstitial pneumonitis of unclear etiology. 2. Atypical pneumonia. 3. Obesity. 4. Type 2 diabetes mellitus. 5. Chronic cough. DISCHARGE MEDICATIONS: 1. Albuterol through nebulizer t.i.d. as needed. 2. Astelin nasal spray. 3. Nexium 40 mg p.o. at bedtime. 4. Chaya 180 mg p.o. daily. 5. Advair HFA 115/21 two puffs b.i.d. 6. Glipizide 10 mg p.o. daily. 7. Losartan 100 mg p.o. daily. 8. Montelukast 10 mg p.o. daily. 9. Simvastatin 40 mg p.o. at bedtime. 10. Janumet one p.o. b.i.d. 11. Tramadol 50 mg p.o. q.i.d. p.r.n. 12. Azithromycin for 5 days. CONSULTING PHYSICIANS: 1. Dr. Андрей Yan of thoracic surgery. 2. Dr. Heart of Infectious Disease. PROCEDURES: Video-assisted thoracoscopy with lung biopsy performed on the right side. RADIOGRAPHIC DATA: 1. CT scan of the chest shows peripheral predominantly ground-glass opacities concerning for multifocal infection. 2. CT scan of the brain shows some old focal cortical vascular insult in the left superomedial and left posterior lateral cerebellum. HISTORY OF PRESENT ILLNESS: The patient is a 59-year-old man. He has a history of persistent cough and congestion for several months. He notes some improvement with albuterol. However, his symptoms have been worsening recently. He came to the office and was scheduled for bronchoscopy. Upon arrival for the bronchoscopy, he had more dyspnea and wheezing and Anesthesiology felt uncomfortable. He was subsequently admitted. HOSPITAL COURSE: The patient received Solu-Medrol and IV antibiotics. He also received bronchodilators and cough suppressants. He had some transient improvement with this. CT scan was done that showed peripheral infiltrates suggestive of an indolent infection versus pneumonitis from none infectious source. Thoracic surgery was consulted. Video-assisted thoracoscopy was performed. The patient had a lung biopsy. Postoperatively, he had a chest tube and remained in observation in the ICU. The draining from the chest tube decreased substantially over the next two days and the chest tube was removed. The patient was subsequently discharged home. The patient felt better at the time of discharge and was eager to go home. DISPOSITION: The patient will follow up with Dr. Sinan Pino in one week. MD HENRY Reardon/SULMAL /[id number]
--- NOTE | 2020-02-02 12:44 | Progress Note ---
DATE: SUBJECTIVE: Mr. Doyle is doing well. There is no new complaint. He is ready to go home. REVIEW OF SYSTEMS: HEENT: Negative. PULMONARY: Negative. CARDIAC: Negative. PHYSICAL EXAMINATION: GENERAL: Currently alert, oriented. VITAL SIGNS: Stable, afebrile. HEENT: He is not icteric. NECK: Supple. CHEST: Crackles on the right. COR: S1, S2. ABDOMEN: Soft. Bowel sounds present. EXTREMITIES: No edema. SKIN: No rash. IMPRESSION: Pulmonary process, probably pneumonia getting better. The patient will be discharged home. Follow up as an outpatient. He finished five days of Rocephin and azithromycin. Follow up as an outpatient. Discussed with Dr. Pino. MD CARLOS Govea/LYUBOV /[id number]
--- NOTE | 2020-02-02 13:00 | NUR ---
patient was taken out of the Unit with wheel chair and on portable oxygen and was picked up by his with their personal car.
--- NOTE | 2020-02-05 17:06 | Progress Note ---
DATE: Spirometry Report. INTERPRETATION: The FEV1 to FVC ratio is 0.89. The FEV1 was 2.25 L, which is 83% of predicted and the FVC is 2.252 L, which is 70% predicted. After bronchodilators, the FEV1 improved to 2.69, which is 99% of predicted. IMPRESSION: 1. Spirometry consistent with restrictive lung disease, this could be confirmed by measuring lung volumes as necessary. 2. Significant response to bronchodilators. Sinan Pino MD [facility] /[id number]
== END 2020-02-02 12:58 | disposition home or self-care (01) | DRG 166 ==
LOC: ENDO 08:14 → PACU V 09:33 → IMCU 11:01 → OBSVTOIN 01-29 10:53 → ICU 01-30 14:50
PROVIDERS: ADMIT Internal Medicine Critical Care Medicine; ATTEND Internal Medicine Critical Care Medicine
PROC: 0B938ZX Drainage of Right Main Bronchus, Via Natural or Artificial Opening Endoscopic, Diagnostic (ICD-10-PCS; principal; 2020-01-29)
PROC: 0BBK4ZX Excision of Right Lung, Percutaneous Endoscopic Approach, Diagnostic (ICD-10-PCS; 2020-01-29)
PROC: 0B9K8ZX Drainage of Right Lung, Via Natural or Artificial Opening Endoscopic, Diagnostic (ICD-10-PCS; 2020-01-29)
PROC: 0BB Respiratory System, Excision (ICD-10-PCS; 2020-01-29)
DX: J84.89 Other specified interstitial pulmonary diseases (principal); J18.9 Pneumonia, unspecified organism; R91.8 Other nonspecific abnormal finding of lung field; E11.9 Type 2 diabetes mellitus without complications; K21.9 Gastro-esophageal reflux disease without esophagitis; I10 Essential (primary) hypertension; E66.9 Obesity, unspecified; Z68.36 Body mass index [BMI] 36.0-36.9, adult; E78.5 Hyperlipidemia, unspecified; J32.9 Chronic sinusitis, unspecified; Z11.59 Encounter for screening for other viral diseases
CPT/HCPCS: 31623; 36415; 36600; 70450; 71045; 71250; 80048; 80053; 82805; 82948; 85025; 86631; 86738; 86850; 86900; 87040; 87071; 87075; 87102; 87116; 87205; 87206; 87390; 88112; 88305; 88312; 88313; 88331; 93005; 93306; 94060; 94640; 94660; 94664; 96372; G0378; G0433; G0435; J0456; J0696; J1100; J1817; J1940; J2001; J2250; J2270; J2405; J2930; J3010; J7050

== ENCOUNTER → 2023-04-03 | Outpatient (REF) | payer MEDICARE ==
[~2023-04-03] MED LIST changes: -ACETYLCYSTEINE 200 MG/ML 4ML VIAL ONE; -LIDOCAINE HCL 4% 50 ML BTL ONE; -LIDOCAINE HCL-PF 4% 40 MG/1 ML 5ML AMP ONE; -OXYMETAZOLINE HCL 0.05% NAS 1 SPRAY BTL ONE
== END ==
LOC: RAD 10:38
PROVIDERS: ATTEND Internal Medicine Critical Care Medicine
DX: R06.00 Dyspnea, unspecified (principal)
CPT/HCPCS: 71046